=== PATIENT | male | born 1970 | race Hispanic/Latino ===

== ENCOUNTER 2020-05-17 05:26 | Emergency (ER) | payer SELFPAY ==
[2020-05-17] MEDS ORDERED: NALOXONE 2 MG/2 ML INJ ONE (06:22)
[2020-05-17] MEDS ORDERED: ONDANSETRON 4 MG/2 ML INJ ONE (06:22)
[2020-05-17] MEDS ORDERED: SODIUM CHLORIDE 0.9% 1000 ML 1,000 ML IV ONE (06:26)
--- NOTE | 2020-05-17 06:31 | Emergency Department Report ---
History of Present Illness - General Chief Complaint: Overdose Stated Complaint: INGESTION Time Seen by Provider: 05/17/20 06:17 Source: patient, EMS Mode of arrival: Stretcher Limitations: No Limitations - History of Present Illness Initial Comments: Patient is 50 years old male with no significant past medical history. Patient brought to the emergency room via EMS from home for decreased responsiveness. Patient is obtunded but is answering questions. Patient stated that he took 0.5 g of methamphetamine. Patient denied suicidal ideation. He stated that he does not do drugs but his girlfriend asked him to take it with her and he did. Patient vital signs stable with a respiratory rate of 20 and oxygen saturation of 100%. Blood pressure is 90/52. Patient started on IV fluids. Patient given Narcan with no response. Complaint: accidental overdose -: This morning Intent: other How Overdose Was Discovered: called family/friend Context: Accidental Overdose: wanted to get high Treatments Prior to Arrival: none - Related Data Allergies Allergy/AdvReac Type Severity Reaction Status Date / Time No Known Allergies Allergy Unverified 05/17/20 05:35 ED Review of Systems ROS: Stated complaint: INGESTION Other details as noted in HPI Comment: All other systems reviewed and negative Constitutional: denies: chills, fever Respiratory: denies: cough, shortness of breath, SOB with exertion, SOB at rest, wheezing Cardiovascular: denies: chest pain, palpitations Gastrointestinal: denies: abdominal pain, nausea Neurological: denies: headache, weakness, numbness Psychiatric: denies: depression, auditory hallucinations, visual hallucinations, homicidal thoughts, suicidal thoughts ED Past Medical Hx - Past Medical History Additional medical history: unable to obtain - Surgical History Past Surgical History?: No Additional Surgical History: unable to obtain - Social History Smoking Status: Current Every Day Smoker ED Physical Exam - General Limitations: No Limitations General appearance: obtunded - Head Head exam: Present: atraumatic, normocephalic, normal inspection - Eye Eye exam: Present: normal appearance, PERRL Pupils: Present: other (3 mm and reactive to light.) - ENT ENT exam: Present: normal exam, normal orophraynx, mucous membranes moist - Neck Neck exam: Present: normal inspection. Absent: tenderness, meningismus - Respiratory Respiratory exam: Present: normal lung sounds bilaterally - Cardiovascular Cardiovascular Exam: Present: regular rate, normal rhythm, normal heart sounds - GI/Abdominal GI/Abdominal exam: Present: soft, normal bowel sounds. Absent: distended, tenderness, guarding, rebound, rigid, organomegaly, mass, bruit, pulsatile mass, hernia - Extremities Exam Extremities exam: Present: normal inspection, full ROM, normal capillary refill. Absent: pedal edema, calf tenderness - Back Exam Back exam: Present: normal inspection, full ROM. Absent: CVA tenderness (R), CVA tenderness (L) - Neurological Exam Neurological exam: Present: alert, oriented X3, CN II-XII intact, reflexes normal. Absent: motor sensory deficit - Psychiatric Psychiatric exam: Absent: homicidal ideation, suicidal ideation - Skin Skin exam: Present: warm, intact, normal color ED Course Vital Signs 05/17/20 05/17/20 05/17/20 05:28 05:30 05:35 Pulse Rate 73 71 69 Respiratory 20 14 18 Rate Blood Pressure 105/58 Blood Pressure [Left] O2 Sat by Pulse 97 98 Oximetry 05/17/20 05/17/20 05/17/20 05:45 06:00 06:15 Pulse Rate 68 64 62 Respiratory 19 20 20 Rate Blood Pressure 94/58 94/58 Blood Pressure [Left] O2 Sat by Pulse 98 96 97 Oximetry 05/17/20 05/17/20 05/17/20 06:31 06:45 07:01 Pulse Rate 85 Respiratory 15 20 18 Rate Blood Pressure 95/44 95/44 109/77 Blood Pressure [Left] O2 Sat by Pulse 92 98 98 Oximetry 05/17/20 05/17/20 05/17/20 07:15 07:30 07:45 Pulse Rate Respiratory 18 19 19 Rate Blood Pressure 109/77 111/72 111/72 Blood Pressure [Left] O2 Sat by Pulse 97 98 99 Oximetry 05/17/20 05/17/20 05/17/20 08:00 08:15 08:30 Pulse Rate Respiratory 20 21 19 Rate Blood Pressure 101/74 101/74 111/71 Blood Pressure [Left] O2 Sat by Pulse 99 100 99 Oximetry 05/17/20 05/17/20 05/17/20 08:45 09:00 09:15 Pulse Rate Respiratory 16 18 19 Rate Blood Pressure 111/71 110/76 101/74 Blood Pressure [Left] O2 Sat by Pulse 99 98 98 Oximetry 05/17/20 05/17/20 05/17/20 09:30 09:45 10:00 Pulse Rate Respiratory 18 17 18 Rate Blood Pressure 105/74 105/74 117/78 Blood Pressure [Left] O2 Sat by Pulse 100 98 98 Oximetry 05/17/20 05/17/20 05/17/20 10:15 10:30 10:45 Pulse Rate Respiratory 20 19 18 Rate Blood Pressure 117/78 113/78 113/78 Blood Pressure [Left] O2 Sat by Pulse 99 99 98 Oximetry 05/17/20 05/17/20 05/17/20 11:00 11:15 11:30 Pulse Rate Respiratory 20 18 15 Rate Blood Pressure 115/77 115/77 125/78 Blood Pressure [Left] O2 Sat by Pulse 100 99 94 Oximetry 05/17/20 05/17/20 05/17/20 11:45 12:00 12:12 Pulse Rate 98 H Respiratory 15 15 16 Rate Blood Pressure 125/78 126/80 Blood Pressure 126/80 [Left] O2 Sat by Pulse 100 97 100 Oximetry 05/17/20 05/17/20 05/17/20 12:15 12:30 12:45 Pulse Rate Respiratory 19 19 20 Rate Blood Pressure 125/78 114/78 114/78 Blood Pressure [Left] O2 Sat by Pulse 98 98 99 Oximetry 05/17/20 05/17/20 05/17/20 13:00 13:15 13:30 Pulse Rate Respiratory 14 17 14 Rate Blood Pressure 122/84 122/84 118/81 Blood Pressure [Left] O2 Sat by Pulse 99 99 100 Oximetry 05/17/20 13:45 Pulse Rate Respiratory 22 Rate Blood Pressure 122/84 Blood Pressure [Left] O2 Sat by Pulse 100 Oximetry ED Medical Decision Making - Lab Data Result diagrams: 05/17/20 07:07 05/17/20 07:07 - Medical Decision Making Patient is 50 years old male with no significant past medical history. Patient brought to the emergency room via EMS from home for decreased responsiveness. Patient is obtunded but is answering questions. Patient stated that he took 0.5 g of methamphetamine. Patient denied suicidal ideation. He stated that he does not do drugs but his girlfriend asked him to take it with her and he did. Patient vital signs stable with a respiratory rate of 20 and oxygen saturation of 100%. Blood pressure is 90/52. Patient started on IV fluids. Patient given Narcan with no response. Patient evaluated by me multiple times. Patient remained sleeping with snoring however patient is easily awake able. Patient is alert, oriented x3 in no acute distress. Patient will be discharged home when sober. Critical care attestation.: If time is entered above; I have spent that time in minutes in the direct care of this critically ill patient, excluding procedure time. ED Disposition Clinical Impression: Accidental drug overdose, Methamphetamine abuse Disposition: ELOPED Is pt being admited?: No Condition: Stable Instructions: Methamphetamine Abuse (ED) Referrals: FLOWER BROWN [Primary Care Provider] - 3-5 Days
[2020-05-17] MEDS ORDERED: ONDANSETRON 4 MG/2 ML INJ IV ONE (06:48)
[2020-05-17] MEDS ORDERED: NALOXONE 2 MG/2 ML INJ IV ONE (06:48)
[2020-05-17 07:31] LABS: Bilirubin,Urine NEG (Negative); Blood,Urine NEG (Negative); Color,Urine Yellow (Yellow); Mucus,Urine 2+ /HPF; Protein,Urine <15 mg/dL mg/dL (Negative); WBC,Urine < 1.0 /HPF (0.0-6.0)
[2020-05-17 07:34] LABS: Basophils % (Auto) 0.5 % (0.0-1.8); Eosinophils # (Auto) 0.1 K/mm3 (0.0-0.4); Eosinophils % (Auto) 0.7 % (0.0-4.3); Hematocrit 41.8 % (35.5-45.6); Hemoglobin 14.2 gm/dl (11.8-15.2); Lymphocytes # (Auto) 1.4 K/mm3 (1.2-5.4); Lymphocytes % (Auto) 17.3 % (13.4-35.0); Mean Corpuscular HGB Conc 34 % (32-34); Mean Corpuscular Volume 97 fl (84-94); Monocytes # (Auto) 0.5 K/mm3 (0.0-0.8); Monocytes % (Auto) 6.6 % (0.0-7.3); Platelet Count 211 K/mm3 (140-440); Red Blood Count 4.33 M/mm3 (3.65-5.03); Red Cell Distribution Width 13.7 % (13.2-15.2)
[2020-05-17 07:43] LABS: Benzodiazepines Screen,Urine Negative; Cannabinoid Screen,Urine Negative; Cocaine Screen,Urine Negative; Methadone Screen,Urine Negative; Opiate Screen,Urine Negative
[2020-05-17 07:48] LABS: BUN/Creatinine Ratio 11; Blood Urea Nitrogen 11 mg/dL (9-20); Calcium 9.1 mg/dL (8.4-10.2); Hemolysis Index 10
[2020-05-17 07:50] LABS: Alanine Aminotransferase 13 units/L (7-56); Albumin 3.9 g/dL (3.9-5)
[2020-05-17 07:53] LABS: Bilirubin,Direct < 0.2 mg/dL (0-0.2)
[2020-05-17 07:55] LABS: Amphetamine Screen,Urine Positive
[2020-05-17 15:37] VITALS: BP 122/84
== END 2020-05-17 15:58 | disposition left against medical advice (07) ==
LOC: ED 05:26
DX: T65.891A Toxic effect of other specified substances, accidental (unintentional), initial encounter (principal); Z53.21 Procedure and treatment not carried out due to patient leaving prior to being seen by health care provider
CPT/HCPCS: 36415; 80048; 80076; 80307; 81001; 85025; J2310; J2405; 80320; G0480

== ENCOUNTER 2021-03-28 23:59 | Emergency (ER) | payer SELFPAY ==
[2021-03-29] MEDS ORDERED: SODIUM CHLORIDE 0.9% 1000 ML 1,000 ML IV ONE (00:30)
[2021-03-29 01:02] LABS: Basophils % (Auto) 0.5 % (0.0-1.8); Eosinophils # (Auto) 0.2 K/mm3 (0.0-0.4); Eosinophils % (Auto) 2.9 % (0.0-4.3); Hematocrit 36.8 % (35.5-45.6); Hemoglobin 12.8 gm/dl (11.8-15.2); Lymphocytes # (Auto) 2.3 K/mm3 (1.2-5.4); Lymphocytes % (Auto) 27.3 % (13.4-35.0); Mean Corpuscular HGB Conc 35 % (32-34); Mean Corpuscular Volume 95 fl (84-94); Monocytes # (Auto) 0.7 K/mm3 (0.0-0.8); Monocytes % (Auto) 7.7 % (0.0-7.3); Platelet Count 283 K/mm3 (140-440); Red Blood Count 3.89 M/mm3 (3.65-5.03); Red Cell Distribution Width 13.5 % (13.2-15.2)
[2021-03-29 01:24] LABS: Alanine Aminotransferase 15 units/L (7-56); Albumin 3.8 g/dL (3.9-5); BUN/Creatinine Ratio 15; Blood Urea Nitrogen 16 mg/dL (9-20); Calcium 8.6 mg/dL (8.4-10.2); Hemolysis Index 0
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
[2021-03-29 01:38] LABS: Benzodiazepines Screen,Urine Negative; Cannabinoid Screen,Urine Negative; Cocaine Screen,Urine Negative; Methadone Screen,Urine Negative; Opiate Screen,Urine Negative
[2021-03-29 01:50] LABS: Amphetamine Screen,Urine Positive
[2021-03-29 04:53] VITALS: BP 111/77
--- NOTE | 2021-04-02 10:58 | Electrocardiograph Report ---
[facility] Test Date: 2021-03-29 Test Time: 00:27:54 Pat Name: CORINA BECK Department: Room: Gender: M Grant Specialist: JEREMY : 1970 Requested By: NICK SINGH Order Number: [id number] Reading MD: Syd De Leon Measurements Intervals [place] Rate: 76 P: 60 SD: 137 QRS: 49 QRSD: 106 T: 61 QT: 399 QTc: 451 Interpretive Statements Sinus rhythm No previous ECG available for comparison Electronically Signed On 04-02-2021 10:58:27 EDT by Syd De Leon
== END 2021-03-29 05:05 ==
LOC: ED 23:59
DX: R41.82 Altered mental status, unspecified (principal); T43.625A Adverse effect of amphetamines, initial encounter; F17.200 Nicotine dependence, unspecified, uncomplicated; Y92.89 Other specified places as the place of occurrence of the external cause
CPT/HCPCS: 36415; 71045; 74018; 80053; 80307; 84484; 85025; 93005; 96360; 99285; J7030; 80320; G0480